=== PATIENT | male | born 1975 | race Caucasian/White ===

== ENCOUNTER → 2019-01-05 11:19 | Outpatient (CLI) | payer OTHER | END | disposition home or self-care (01) | LOC: LAB 11:19 | DX: E11.9 Type 2 diabetes mellitus without complications (principal); M13.88 Other specified arthritis, other site; E78.00 Pure hypercholesterolemia, unspecified; I10 Essential (primary) hypertension; N39.0 Urinary tract infection, site not specified; N41.0 Acute prostatitis; B20 Human immunodeficiency virus [HIV] disease ==

== ENCOUNTER 2022-09-21 13:06 | Outpatient (CLI) | payer OTHER | END 2022-09-21 13:23 | disposition home or self-care (01) | LOC: RAD 13:06 | PROVIDERS: ATTEND Internal Medicine Cardiovascular Disease | DX: M54.2 Cervicalgia (principal); E07.89 Other specified disorders of thyroid; S43.402A Unspecified sprain of left shoulder joint, initial encounter ==

== ENCOUNTER → 2022-09-22 11:20 | Outpatient (CLI) | payer OTHER | END | disposition home or self-care (01) | LOC: LAB 09-21 14:32 | PROVIDERS: ATTEND Internal Medicine Cardiovascular Disease | DX: A64 Unspecified sexually transmitted disease (principal); B20 Human immunodeficiency virus [HIV] disease; I10 Essential (primary) hypertension; E55.9 Vitamin D deficiency, unspecified; Z12.11 Encounter for screening for malignant neoplasm of colon; N39.0 Urinary tract infection, site not specified; N41.9 Inflammatory disease of prostate, unspecified; E03.8 Other specified hypothyroidism; E11.9 Type 2 diabetes mellitus without complications; C25.9 Malignant neoplasm of pancreas, unspecified ==